=== PATIENT | female | born 1990 | race Caucasian/White ===

== ENCOUNTER 2019-09-14 11:01 | Emergency (ER) | payer OTHER, SELFPAY ==
[2019-09-14 11:15] VITALS: BP 116/83; PULSE 62; RESP 16; TEMP 36.6; O2SAT 100
--- NOTE | 2019-09-14 11:54 | ED.FEMALEGU ---
HPI - Female Genitourinary General Chief complaint: Urogenital-Female Stated complaint: Swollen vagina Time Seen by Provider: 09/14/19 11:54 Source: patient and RN notes reviewed Mode of arrival: ambulatory Limitations: no limitations History of Present Illness HPI Narrative: This is a 29 years old female presented office for evaluation of painful lesion in her vagina. She noticed it this morning. Denies injury or trauma. Denies urinary symptoms or discharge. She is sexually active with one partner only. She googled her symptoms which brought her to come here for second opinion. Denies concern for STI. Related Data Allergies Allergy/AdvReac Type Severity Reaction Status Date / Time adhesive tape Allergy Unknown Redness of Verified 09/14/19 11:33 Skin Review of Systems Review of Systems: Narrative: CONSTITUTIONAL: Denies fever or feeling ill ENT: Denies congestion CARDIOVASCULAR: Denies chest pain RESPIRATORY: Denies dyspnea GASTROINTESTINAL: Denies abdominal pain, nausea, vomiting, diarrhea. GENITOURINARY: Denies urinary symptoms or vaginal discharge SKIN: Denies rash MUSCULOSKELETAL: Denies acute back pain NEUROLOGIC: Denies lightheaded All other systems reviewed are negative, except as documented in HPI. PMFSH Surgical History Surgical History Hx of cholecystectomy Social History Social History Smoking status: Never smoker Second hand tobacco smoke exposure: No Alcohol intake: current Comments At time of signature, I agree with nursing past medical, surgical, social and family history. There is no relevant family history pertinent to the presenting complaint. Exam Narrative: Exam Narrative: GENERAL: This is a well-nourished, well-developed patient, in no apparent distress. CARDIOVASCULAR: Regular rate and rhythm without murmurs, gallops, or rubs. RESPIRATORY: Clear to auscultation. Breath sounds equal bilaterally. No wheezes, rales, or rhonchi. GASTROINTESTINAL: Abdomen soft, non-tender, nondistended. Bowel sounds are active. No hepato-splenomegaly, or palpable masses. No guarding. : exam sample clerk by warren Tyler labia appears normal without obvious lesions/rash; right fold between major and minor labia noted three erythethematous nodules with tendenerness to palpation. No vaginal discharge noted. No cyst noted NEURO: awake, alert, and oriented to person, place and time. There were no obvious focal neurologic abnormalities. Steady gait Bartlett Coma Scale Eye Opening: Spontaneous 4 Jarvis Coma Scale Motor: Obeys Commands 6 Bartlett Coma Scale Verbal: Oriented 5 Course Vital Signs Vital signs: Vital Signs Temperature 98 F 09/14/19 11:15 Pulse Rate 62 09/14/19 11:15 Respiratory Rate 16 09/14/19 11:15 Blood Pressure 116/83 09/14/19 11:15 Pulse Oximetry 100 09/14/19 11:15 Temperature 98 F 09/14/19 11:15 Pulse Rate 62 09/14/19 11:15 Respiratory Rate 16 09/14/19 11:15 Blood Pressure 116/83 09/14/19 11:15 Pulse Oximetry 100 09/14/19 11:15 MDM - Female Genitourinary MDM Narrative Medical decision making narrative: Lesions could be genital herpes or syphilis discussed with patient however it is unlikely since patient did not have history or concern for STD. Lesions likely due to some kind of an irritation that cause by soap, douche or underwear or foliculitis from shaving discussed with patient. Discharge instructions reviewed with patient, as well as provided in writing per nursing staff. The instructions also include specific and strict return/GO TO THE ER as well as f/u information. All questions have been answered, and the patient deny any further questions with discharge and discharge plan. Differential Diagnosis Differential diagnosis: Likely ovarian cyst, vaginitis and cyst of Bartholin's gland Critical Care Time Critical Care Denilson
== END 2019-09-14 12:17 | disposition home or self-care (01) ==
PROVIDERS: Emergency Provider Nurse Practitioner; PCP Nurse Practitioner Family
DX: L25.9 Unspecified contact dermatitis, unspecified cause (principal)
CPT/HCPCS: 99211; G0463

== ENCOUNTER 2024-12-14 10:42 | Emergency (ER) | payer BC, SELFPAY ==
--- OUTSIDE RECORDS SUMMARY | 2013-01-09 12:35 | XMS_ITS | Continuity of Care Document ---
Author Organization [facility] Address [address] [place] [address] Phone Care Team Providers Care Registered Dietitian Name Role Phone Unavailable Unavailable Unavailable Allergies, Adverse Reactions, Alerts Substance Reaction Status Criticality No Known allergies Medications Medication Instructions Dosage Effective Dates (start - stop) Status Comments Keflex 250 mg capsule take 1 capsule by oral route every 8 hours 250 MG - Active Ortho Tri-Cyclen Lo (28) 0.18 mg/0.215 mg/0.25 mg-25 mcg tablet take 1 tablet by oral route every day - Active Procedures Procedure Date Office/outpatient visit,[facility] 2012 Office/outpatient visit,[facility] 2011 Removal of single nail plate Advance Directives Directive Yes / No Effective Date File Name No Information Encounters Encounter Description Practice Location Reason(s) For Visit Diagnoses Date Provider Providers Copied on Encounter Office/outpat ient visit,[facility], [address] [place] [address], [id number], tel:[phone] [facility] Urgent Care leg injury (chief complaint)U rinary problems (chief complaint)H eadache (chief complaint) Contusion No Information Office/outpat ient visit,[facility], [address] [place] [address], [id number], tel:[phone] [facility] Urgent Care injury, finger (chief complaint) Nail avulsion, finger Stephon Lance. [address] [place], [address], . tel:[phone] Family History Family Member Type Diagnosis Age At Onset No Information Payers Payer name Insurance type Covered libertarian ID Radha cardoza(s) [facility] [id number] Social History Type Description Quantity Date Captured Comments Alcohol Use Details Unknown Caffeine Use Details Unknown Tobacco Use Status No Information Smoking Status Never smoker Non-Smoking Tobacco Use Details : No Details Available : No Details Available Sex Female Vital Signs Date / Time: Height Weight BMI Pulse Rate Blood Pressure Temperature Respiratory Rate Body Surface Area Head Circumference Head Circ. Percentile Wt./Minh. Percentile BMI percentile Pulse Ox Inhaled Ox 6:03 PM 59.00 in 73.028 kg (161.00 lbs) 32.5 2 kg/m eter (2) 77 /min 121/82 mm[Hg] 97.90 F 20 /min 98 % 21 % Chief Complaint And Reason For Visit From encounter dated '01/09/2013 17:35'. leg injury (chief complaint). Description: The symptoms began 4 days ago. pt states 4 days ago at the gym injured L inner thigh now has redness swelling and possible puncture wound Urinary problems (chief complaint) Headache (chief complaint) Reason For Referral Reason For Referral No Information History Of Present Illness Encounter Date Complaint History Of Prese nt Illness leg injury The symptoms beg an 4 days ago. pt states 4 days ago at the gym injured L inner thigh now has redness swelling and possible puncture wound Urinary problems Headache Functional Status Date Functional Assessmen t No Information Instructions Date Instruction Additional Infor mation Seek followup care i f symptoms persist, worsen, or new symptoms developSeek followup care if symp Related to Contusion Arrange earlier foll owup visit if symptoms worsen, new symptoms develop, or return to Urgent Care Related to Contusion Take medications as directed Rel ated to Contusion Assessments Type Assessment Date No Information Patient Care Teams Name Effective Dates (start - stop) Status Members No Information
[2024-12-14 10:51] VITALS: BP 119/89; PULSE 80; RESP 16; TEMP 36.4; O2SAT 99
--- NOTE | 2024-12-14 10:54 | ED_ITS ---
HPI - Extremity Injury (Lower) General Chief Complaint: Extremity Problem,Nontraumatic Stated Complaint: Lt Leg Pain Time Seen by Provider: 12/14/24 10:54 Source: patient Mode of arrival: ambulatory Limitations: no limitations History of Present Illness HPI Narrative: 34 yo F presents with pain to L groin radiating down L leg. painful when sitting, worse with movement and standing. Could not get comfortable in bed last night due to pain. Denies injury. Went to 6 hockey games this weekend. In and out of car, sitting on bleachers. did a lot of walking and standing. Took ibuprofen with little relief of pain. All systems reviewed and negative except as noted above. Related Data Home Medications ?Medication ?Instructions ?Recorded ?Confirmed ?Last Taken ?Type levonorgestrel (Mirena) 1 device intrauterine ONCE 0 07/13/21 12/14/24 Unknown History Allergies Allergy/AdvReac Type Severity Reaction Status Date / Time adhesive tape AdvReac Mild Redness of Verified 12/14/24 10:45 Skin PMFSH Past Medical History Medical History Remove/insert IUD Encounter for screening examination for sexually transmitted disease Irregular periods Anxiety Abnormal Pap smear of cervix 04/24/2019 Ascus +Hpv Encounter for IUD insertion 03/01/17 Mirena insertion Miscarriage 2010 suction d&c Surgical History Surgical History History of gynecological procedure (10/01/23) mirena iud removal and insertion of new device History of colposcopy with cervical biopsy 05/13/19 benign History of right knee surgery 2014 repair of meniscus [place] teeth extracted 2006 Hx of cholecystectomy 12/26/2016 Family History Family History Other Heart disease maternal aunt--congenital defect, 3 holes in heart Grandparent Acute myocardial infarction maternal grandmother Malignant neoplasm of prostate maternal grandfather Brain malignant neoplasm paternal grandfather Father Acute myocardial infarction Hypertension Social History Social History Smoking status: Never smoker Second hand tobacco smoke exposure: No Alcohol intake: current Drinks per week: 4 Substance use: never Substance use type: does not use Do You Feel Safe in your Home?: Yes Lack of Transportation: No Lack of Food: Never True Current Housing: I Have Housing Concerned About Future Housing: No Difficulty Paying Gas/Electric Bills: No Difficulty Paying for Meds: No Currently Unemployed: No Education: High School Diploma/GED Difficulty w/ Childcare or Family Care: No Living arrangements: other Additional living arrangements comments: dating Occupation/Education: occupation Additional occupation/education comments: [employer] Gender identity (if verbalized by the patient): Female Sexual Orientation (if Verbalized by the Patient): Straight or Heterosexual Comments At time of signature, agree with nursing past medical, surgical, social and family history. There is no relevant family history pertinent to the presenting complaint. Exam Narrative: GENERAL: This is a well-nourished, well-developed patient, in no apparent distr ess. HEAD: normocephalic, atraumatic. EYES: PERRL. Sclera clear/white. Vision is grossly intact. EARS: External ears normal NOSE: External nose normal NECK: Neck supple, non-tender without lymphadenopathy, masses or thyromegaly. CARDIOVASCULAR: Regular rate and rhythm without murmurs, gallops, or rubs. RESPIRATORY: Clear to auscultation. Breath sounds equal bilaterally. No wheezes, rales, or rhonchi. SKIN: warm, Dry, intact with no suspicious lesions or rash, good texture and turgor. NEURO: awake, alert, and oriented to person, place and time. There were no obvious focal neurologic abnormalities. EXTREMITIES: tenderness to left groin on palpation. Pain with passive range of motion Of left hip. No swelling to lower extremities. Distal neurovascularly intact. Course Course Level of Care: Express Care Visit Vital Signs Vital signs: Vital Signs Temperature 36.4 C 12/14/24 10:51 Pulse Rate 80 12/14/24 10:51 Respiratory Rate 16 12/14/24 10:51 Blood Pressure 119/89 12/14/24 10:51 Pulse Oximetry 99 12/14/24 10:51 Temperature 36.4 C 12/14/24 10:51 Pulse Rate 80 12/14/24 10:51 Respiratory Rate 16 12/14/24 10:51 Blood Pressure 119/89 12/14/24 10:51 Pulse Oximetry 99 12/14/24 10:51 Reviewed MDM - Extremity Injury (Lower) MDM Narrative Medical decision making narrative: tenderness to left groin, increase in pain with range of motion left hip concerning for cord strain. No neuro deficits. Recommend follow-up with primary care physician if not improved. Discharge Plan Discharge Clinical Impression: Strain of left groin Patient Disposition: Home Condition: Stable Instructions: Groin Strain (ED) Additional Instructions: take medication as prescribed. Methocarbamol as a muscle relaxant may cause drowsiness. Do not drive while taking it. Take ibuprofen every 6-8 hours as needed for pain. Apply ice as needed for pain. Do light stretching exercises as tolerated. Follow-up with your primary care physician if symptoms are not improving. Patient Language: Armenian Prescriptions: New methocarbamol 500 mg tablet 500 mg PO Q6H PRN (Reason: muscle pain/spasm) Qty: 30 0RF No Action Mirena 20 mcg/24 hours (7 yrs) 52 mg intrauterine device 1 device intrauterine ONCE Rx Instructions: as a single dose Follow-up/Referrals: Philip Chiu MD [Physician, Family Practice] Referral Note: Establish care with a primary care physician Stand Alone Forms: Work/School Release IP Time of Disposition: 11:01
--- OUTSIDE RECORDS SUMMARY | 2024-12-14 11:19 | XMS_ITS | Clinical Summary ---
Author Organization [facility] Address [facility] [place] [address] Care Team Providers Care Product Info Specialist Name Role Phone Marie Bronson MD Primary Care Provider + Allergies Active Allergy Reactions Criticality Noted Date Comments Tape Rash Low 05/08/2024 Medications Levonorgestrel (MIRENA, 52 MG, IU) Active tirzepatide (ZEPBOUND) 2.5 MG/0.5ML injectionIndica tions:Weight Loss Inject 2.5 mg into the skin once a week. Indications: Weight Loss Provide vials. [facility]. 6 mL 05/08/2024 Active tirzepatide (ZEPBOUND) 2.5 MG/0.5ML injectionIndica tions:Weight Loss Inject 2.5 mg into the skin once a week. Indications: Weight Loss 6 mL 05/08/2024 Active Active Problems Problem Noted Date Diagnosed Date Class 1 obesity due to exces s calories without serious comorbidity with body mass index (BMI) of 30.0 to 30.9 in adult 05/08/2024 Overview (05/08/2024): Previously did phentermine which caused too much jitteriness. She is interested in a medication to help her with weight loss Assessment & Plan (05/08/2024 10:00 AM GAS ROLLER OPERATOR): Discussed preference to manage with diet changes. She would like to use medication to help drop weight further. We discussed Zepbound in the vial program they offer. She would like to pursue this. We discussed the risks and side effects of the medication. Immunizations Immunization Administration Dates Next Due Tdap (Generic) 06/23/2015 Family History Medical History Relation Comments No Known Problems Brother 1 No Known Problems Brother 2 No Known Problems Brother 3 Hypertension Father Cancer Maternal Grandfather Kindey that turned into lung Cancer Maternal Uncle Prostate No Known Problems Mother Cancer Paternal Grandfather Brain tumor No Known Problems Son 1 No Known Problems Son 2 Relation Status Comments Brother 1 Alive Brother 2 Alive Brother 3 Alive Father Alive Maternal Grandfather Maternal Uncle Mother Alive Paternal Grandfather Son 1 Alive Son 2 Alive Social History Tobacco Use Types Packs/Day Years Used Date Smoking Tobacco: Never Passive Smoke Exposure: Past Smokeless Tobacco: Never Tobacco Cessation:Counseling Given: No Alcohol Use Standard Drinks/Week Comments Yes 6.7 (1 standard drink = 0.6 oz p ure alcohol) social PHQ-2 Answer Date Recorded Patient Health Questionnaire-2 Score 0 05/08/2024 Comments Unknown Sex and Gender Information Value Date Recorded Sex Assigned at Not on file Legal Sex Female 3:50 PM GAS ROLLER OPERATOR Gender Identity Not on file Sexual Orientation Not on file Last Filed Vital Signs Vital Sign Reading Time Taken Comments Blood Pressure 118/80 05/08/2024 9:11 AM GAS ROLLER OPERATOR Pulse 77 05/08/2024 9:11 AM GAS ROLLER OPERATOR Temperature 36.9 C (98.4 F) 05/08/2024 9:11 AM GAS ROLLER OPERATOR Respiratory Rate - - Oxygen Saturation 100% 05/08/2024 9:11 AM GAS ROLLER OPERATOR Inhaled Oxygen Concentration - - Weight 68.7 kg (151 lb 6.4 oz) 05/08/2024 9:11 A M GAS ROLLER OPERATOR Height 149.9 cm (4' 11) 05/08/2024 9:11 AM GAS ROLLER OPERATOR Body Mass Index 30.58 05/08/2024 9:11 AM GAS ROLLER OPERATOR Plan of Treatment Upcoming Encounters Date Type Department Care Team (Late st Contact Info) Description 05/14/2025 9:10 AM GAS ROLLER OPERATOR Office Visit [facility] - [place] [address] [place] [phone] Marie Bronson MD [address] [place], [place] [id number] Health Maintenance Due Date Last Done Comments Cervical Cancer Screening Pa p Smear (Age 30 to 64) Every 3 Years 1989 Hepatitis C 2007 Hepatitis B Vaccines (1 of 3 - 19+ 3-dose series) 02/01/2008 HPV Vaccines (1 - 3-dose SCD M series) 02/01/2016 Cervical Cancer Screening Pa p with HPV Testing (Age 30 to 64) Every 5 Years 2019 07/28/2013 Cervical Cancer Screening wi th HPV 2019 COVID-19 Vaccine (3 - 2024-2 6 season) 2024 07/01/2020, 06/02/2020 Annual Physical 05/08/2025 05/08/2024 DTaP, Tdap and Td Vaccines ( 2 - Td or Tdap) 06/22/2025 06/23/2015 PHQ-2 (Physician [place]) Completed 05/08/2024 Meningococcal B Vaccine Aged Out No l onger eligible based on patient's age to complete this topic Meningococcal Vaccine Aged Out No bobby merary eligible based on patient's age to complete this topic Pneumococcal Vaccine: Pediatrics (0 to 5 Years) and At-Risk Patients (6 to 49 Years) Aged Out No longer eligible b ased on patient's age to complete this topic RSV Immunizations Under 20 Months Aged Out No longer eligible b ased on patient's age to complete this topic Insurance [facility] Care Teams Product Info Specialist Relationship Specialty Start Date End Date Marie Bronson MD [address] [facility] [place] [id number] PCP - General FAMILY PRACTICE 05/08/24
--- OUTSIDE RECORDS SUMMARY | 2024-12-14 11:20 | XMS_ITS | Clinical Summary ---
Author Organization [facility] Address [address] [place] [address] Care Team Providers Care Machine Group Leader Name Role Phone Elizabeth Garcia Frankie FONTENOT-CHEMICAL MIXER Primary Care Provider Source Comments [facility],non-owned Affiliates and Associated Physician Practices is amultiple site organization consisting of ambulatory clinics and hospital sitesin [place], [place], [place] and [place]. This disclosure is being madepursuant to the Care Everywhere program and may not contain all information available regarding this patient. Last updated 17.[facility] Allergies No known active allergies Medications * Be aware that medications may not be up to date on this document. Alwaysverify current medications with the patient. azithromycin (Zithromax) 250 MG tablet Take 2 tablets on day 1, then take 1 tablet daily for 4 days 6 tablet 05/02/2022 Active Active Problems Problem Noted Date Diagnosed Date Bacterial vaginosis 07/14/2014 Contraception management 07/14/2014 Family History Medical History Relation Name Comments Hypertension Father Cancer - Other Maternal Grandfather lung [facility] Maternal Grandmother Cancer - Other Paternal Grandfather brain Relation Name Status Comments Father Maternal Grandfather Maternal Grandmother Paternal Grandfather Social History Tobacco Use Types Packs/Day Years Used Date Smoking Tobacco: Never Smokeless Tobacco: Never Alcohol Use Standard Drinks/Week Comments Yes 0 (1 standard drink = 0.6 oz pur e alcohol) beer on occ Comments No Sex and Gender Information Value Date Recorded Sex Assigned at Not on file Legal Sex Female 6:47 PM CHARGE AIDE Gender Identity Not on file Sexual Orientation Not on file 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 Not on file No t on file Last Filed Vital Signs Vital Sign Reading Time Taken Comments Blood Pressure 145/91 05/02/2022 7:30 PM CHARGE AIDE Pulse 80 05/02/2022 6:00 PM CHARGE AIDE Temperature 36.7 C (98.1 F) 05/02/2022 12:55 PM CHARGE AIDE Respiratory Rate 16 05/02/2022 6:00 PM CHARGE AIDE Oxygen Saturation 100% 05/02/2022 7:30 PM CHARGE AIDE Inhaled Oxygen Concentration - - Weight 55.8 kg (123 lb) 05/02/2022 12:55 PM CHARGE AIDE Height 149.9 cm (4' 11) 05/02/2022 12:55 PM CHARGE AIDE Body Mass Index 24.84 05/02/2022 12:55 PM CHARGE AIDE Plan of Treatment Health Maintenance Due Date Last Done Comments HIV SCREENING 02/01/2004 HEPATITIS C SCREENING 01/27/2007 DTAP/TDAP/TD VACCINES (1 - Tdap) 02/01/2008 HEPATITIS B VACCINE (1 of 3 - 19+ 3-dose series) 02/01/2008 HPV VACCINE (2 - 3-dose series) 05/10/2014 04/12/2014 (Declined) PAP SMEAR 07/28/2016 07/28/2013, 0603/2012 (Previously completed) DEPRESSION SCREENING 03/18/2024 COVID-19 VACCINE (3 - 2024- season) 2024 07/01/2020, 06/02/2020 INFLUENZA VACCINE (#1) 2024 3, 12/27/2020, 12/23/2020, Additional history exists ZOSTER VACCINE (1 of 2) 2039 HIB VACCINE Aged Out No longer eligi ble based on patient's age to complete this topic MENINGOCOCCAL (Group B) VACCINE SHARED DECISION-MAKING Aged Out No longer eligible based on patient's age to complete this topic MENINGOCOCCAL GROUPS A/C/Y/W VACCINE Aged Out No longer eligible based on patient's age to complete this topic PNEUMOCOCCAL VACCINE Aged Out No long er eligible based on patient's age to complete this topic Procedures Procedure Name Priority Date/Time Associated Diagnosis Comments PAP SMEAR IG HPV HR Routine 07/28/2013 5:59 PM CDT Well woman exam with routine gynecological exam from Last 3 Months or Most Recently Relevant to Health Maintenance Results * PAP SMEAR IG HPV HR (PO REF LAB) (07/28/2013 5:59 PM CDT) Diagnosis [facility] ACCOUNT BILL Comment: NEGATIVE FOR INTRAEPITHELIAL LESION AND MALIGNANCY. PREDOMINANCE OF COCCOBACILLI CONSISTENT WITH SHIFT IN VAGINAL LARISA IS PRESENT. CELLULAR CHANGES ASSOCIATED WITH INFLAMMATION ARE PRESENT. Specimen Adequacy [facility] ACCOUNT BILL Comment: Satisfactory for evaluation. Endocervical and/or squamous metaplastic cells (endocervical component) are present. Clinician Provided ICD9 [facility] ACCOUNT BILL Comment:V72.31 ; Routine director retirement ecological examination Performed by [facility] ACCOUNT BILL Comment:Sai Garza, Cytotec hnologist (ASCP) Comment . [facility] ACCOUNT BILL Note [facility] ACCOUNT BILL Comment: The Pap smear is a screening test designed to aid in the detection of premalignant and malignant conditions of the uterine cervix. It is not a diagnostic procedure and should not be used as the sole means of detecting cervical cancer. Both false-positive and false-negative reports do occur. . IGLBP CPT Code Automation [facility] ACCOUNT BILL Comment: This liquid based ThinPrep(R) pap test was screened with the use of an image guided system. Human papillomavirus High Risk Negative Negative [facility] ACCOUNT BILL Comment: This high-risk HPV test detects thirteen high-risk types (16/18/31/33/35/39/45/51/52/56/58/59/68) without differentiation. . MICROSCOPIC CYTOLOGIC EXAMINATION OF SMEAR OF SPECIMEN FROM FEMALE GENITAL TRACT PREPARED USING PAPANICOLAOU TECHNIQUE / Unknown 07/28/2013 5:59 PM CDT 07/30/2013 4:54 AM CDT Narrative [facility] ACCOUNT BILL - 07/31/2013 8:10 PM CDT Source.............Endocervical LMP / Prev Treat...ZHZ=[id number];None Other..............Oral Contraceptives No. of containers..01 CYTYC Thin Prep Vial Resulting Agency Comment [facility] [address] [place] [id number] us Salina Abdi MD LAB - PATHOLOGY/CYTOLOGY ORDER OMA Final Result [facility] ACCOUNT BILL [address] [place] [address] from Last 3 Months or Most Recently Relevant to Health Maintenance Insurance [employer] [facility] Care Teams Machine Group Leader Relationship Specialty Start Date End Date Elizabeth Garcia, INSPECTOR OF WEIGHTS AND MEASURES-CHEMICAL MIXER [address] [place] [address] PCP - General Nurse Practitioner Family 05/02/22
--- OUTSIDE RECORDS SUMMARY | 2024-12-14 11:20 | XMS_ITS ---
09/06/19 24 09/06/2023 CBC/C OMPLE TE BLD COUNT W/DIF F platelets 296 x10'3 /uL 150-40 0 Not Available [facility] (Lab) [address] [place], [address], 09/06/2023 13:27:53 09/06/19 24 09/06/2023 CBC/C OMPLE TE BLD COUNT W/DIF F mean platelet volume 10.2 fL 9.0-12 .4 Not Available [facility] (Lab) [address] [place], [address], 09/06/2023 13:27:53 09/06/19 24 09/06/2023 CBC/C OMPLE TE BLD COUNT W/DIF F neutrophils 55.6 % 39.0-7 2.0 Not Available [facility] (Lab) [address] [place], [address], 09/06/2023 13:27:53 09/06/19 24 09/06/2023 CBC/C OMPLE TE BLD COUNT W/DIF F lymphocytes 36.1 % 16.0-4 7.0 Not Available [facility] (Lab) [address] [place], [address], 09/06/2023 13:27:53 09/06/19 24 09/06/2023 CBC/C OMPLE TE BLD COUNT W/DIF F monocytes 5.8 % 5.0-12 .0 Not Available [facility] (Lab) [address] [place], [address], 09/06/2023 13:27:53 09/06/19 24 09/06/2023 CBC/C OMPLE TE BLD COUNT W/DIF F eosinophils 1.5 % 1.0-7. 0 Not Available [facility] (Lab) [address] [place], [address], 09/06/2023 13:27:53 09/06/19 24 09/06/2023 CBC/C OMPLE TE BLD COUNT W/DIF F basophils 0.7 % 0.0-2. 0 Not Available [facility] (Lab) [address] [place], [address], 09/06/2023 13:27:53 09/06/19 24 09/06/2023 CBC/C OMPLE TE BLD COUNT W/DIF F immature granulocytes 0.3 % 0.00-0 .50 Not Available [facility] (Lab) [address] [place], [address], 09/06/2023 13:27:53 09/06/19 24 09/06/2023 CBC/C OMPLE TE BLD COUNT W/DIF F neutrophils, absolute count 4.16 x10'3 /uL 1.5-8. 0 Not Available [facility] (Lab) [address] [place], [address], 09/06/2023 13:27:53 09/06/19 24 09/06/2023 CBC/C OMPLE TE BLD COUNT W/DIF F lymphocytes, absolute count 2.70 x10'3 /uL 1.07-3 .43 Not Available [facility] (Lab) [address] [place], [address], 09/06/2023 13:27:53 09/06/19 24 09/06/2023 CBC/C OMPLE TE BLD COUNT W/DIF F monocytes, absolute count 0.43 x10'3 /uL 0.29-0 .99 Not Available [facility] (Lab) [address] [place], [address], 09/06/2023 13:27:53 09/06/19 24 09/06/2023 CBC/C OMPLE TE BLD COUNT W/DIF F eosinophils, absolute count 0.11 x10'3 /uL 0.02-0 .53 Not Available [facility] (Lab) [address] [place], [address], 09/06/2023 13:27:53 09/06/19 24 09/06/2023 CBC/C OMPLE TE BLD COUNT W/DIF F basophils, absolute count 0.05 x10'3 /uL 0.01-0 .08 Not Available [facility] (Lab) [address] [place], [address], 09/06/2023 13:27:53 09/06/19 24 09/06/2023 CBC/C OMPLE TE BLD COUNT W/DIF F immature granulocytes ,absolute 0.02 x10'3 /uL 0.00-0 .05 Not Available [facility] (Lab) [address] [place], [address], 09/06/2023 13:27:53 09/06/19 24 09/06/2023 CBC/C OMPLE TE BLD COUNT W/DIF F nucleated red blood cells 0.0 % -0 Not Available [facility] (Lab) [address] [place], [address], 09/06/2023 13:27:53 09/06/19 24 09/06/2023 CBC/C OMPLE TE BLD COUNT W/DIF F NRBC# 0.00 x10'3 /uL Not Available [facility] (Lab) [address] [place], [address], 09/06/2023 13:27:53 09/06/19 24 09/06/2023 URINA LYSIS COMPL ETE/I RIS W/RFX color YELLOW Not Available [facility] (Lab) [address] [place], [address], 09/06/2023 13:29:20 09/06/19 24 09/06/2023 URINA LYSIS COMPL ETE/I RIS W/RFX appear CLEAR Not Available [facility] (Lab) [address] [place], [address], 09/06/2023 13:29:20 09/06/19 24 09/06/2023 URINA LYSIS COMPL ETE/I RIS W/RFX specific gravity 1.016 1.001- 1.030 Not Available [facility] (Lab) [address] [place], [address], 09/06/2023 13:29:20 09/06/19 24 09/06/2023 URINA LYSIS COMPL ETE/I RIS W/RFX pH 7.0 pH_un its 5.0-9. 0 Not Available [facility] (Lab) [address] [place], [address], 09/06/2023 13:29:20 09/06/19 24 09/06/2023 URINA LYSIS COMPL ETE/I RIS W/RFX leukocytes NEGATI VE nneka/u L negati ve- Not Available [facility] (Lab) [address] [place], [address], 09/06/2023 13:29:20 09/06/19 24 09/06/2023 URINA LYSIS COMPL ETE/I RIS W/RFX nitrite NEGATI VE negati ve- Not Available [facility] (Lab) [address] [place], [address], 09/06/2023 13:29:20 09/06/19 24 09/06/2023 URINA LYSIS COMPL ETE/I RIS W/RFX protein 10 mg/dL negati ve- abnormal Not Available [facility] (Lab) [address] [place], [address], 09/06/2023 13:29:20 09/06/19 24 09/06/2023 URINA LYSIS COMPL ETE/I RIS W/RFX glucose NORMAL mg/dL normal - Not Available [facility] (Lab) [address] [place], [address], 09/06/2023 13:29:20 09/06/19 24 09/06/2023 URINA LYSIS COMPL ETE/I RIS W/RFX ketones NEGATI VE mg/dL negati ve- Not Available [facility] (Lab) [address] [place], [address], 09/06/2023 13:29:20 09/06/19 24 09/06/2023 URINA LYSIS COMPL ETE/I RIS W/RFX urobilinogen NORMAL mg/dL normal - Not Available [facility] (Lab) [address] [place], [address], 09/06/2023 13:29:20 09/06/19 24 09/06/2023 URINA LYSIS COMPL ETE/I RIS W/RFX bilirubin NEGATI VE mg/dL negati ve- Not Available [facility] (Lab) [address] [place], [address], 09/06/2023 13:29:20 09/06/19 24 09/06/2023 URINA LYSIS COMPL ETE/I RIS W/RFX blood NEGATI VE mg/dL negati ve- Not Available [facility] (Lab) [address] [place], [address], 09/06/2023 13:29:20 09/06/19 24 09/06/2023 URINA LYSIS COMPL ETE/I RIS W/RFX white blood cells 0-8 /i??h pfi?? 0-8 Not Available [facility] (Lab) [address] [place], [address], 09/06/2023 13:29:20 09/06/19 24 09/06/2023 URINA LYSIS COMPL ETE/I RIS W/RFX red blood cells 0-4 /i??h pfi?? 0-4 Not Available [facility] (Lab) [address] [place], [address], 09/06/2023 13:29:20 09/06/19 24 09/06/2023 URINA LYSIS COMPL ETE/I RIS W/RFX bacteria NONE Not Available [facility] (Lab) [address] [place], [address], 09/06/2023 13:29:20 09/06/19 24 09/06/2023 URINA LYSIS COMPL ETE/I RIS W/RFX mucous OCCASI ONAL /i??l pfi?? abnormal Not Available [facility] (Lab) [address] [place], [address], 09/06/2023 13:29:20 09/06/19 24 09/06/2023 URINA LYSIS COMPL ETE/I RIS W/RFX squamous epithelial FEW /i??l pfi?? abnormal Not Available [facility] (Lab) [address] [place], [address], 09/06/2023 13:29:20 09/06/19 24 09/06/2023 COMPR EHENS SHANNAN METAB OLIC PANEL sodium 137 mmol/ L 137-14 5 Not Available [facility] (Lab) [address] [place], [address], 09/06/2023 14:01:40 09/06/19 24 09/06/2023 COMPR EHENS SHANNAN METAB OLIC PANEL potassium 4.4 mmol/ L 3.5-5. 1 Not Available [facility] (Lab) [address] [place], [address], 09/06/2023 14:01:40 09/06/19 24 09/06/2023 COMPR EHENS SHANNAN METAB OLIC PANEL chloride 109 mmol/ L 98-107 high Not Available [facility] (Lab) [address] [place], [address], 09/06/2023 14:01:40 09/06/19 24 09/06/2023 COMPR EHENS SHANNAN METAB OLIC PANEL carbon dioxide 26 mmol/ L 22-30 Not Available [facility] (Lab) [address] [place], [address], 09/06/2023 14:01:40 09/06/19 24 09/06/2023 COMPR EHENS SHANNAN METAB OLIC PANEL anion gap 6.4 mmol/ L 14-22 low Not Available [facility] (Lab) [address] [place], [address], 09/06/2023 14:01:40 09/06/19 24 09/06/2023 COMPR EHENS SHANNAN METAB OLIC PANEL glucose 97 mg/dL 70-99 Not Available [facility] (Lab) [address] [place], [address], 09/06/2023 14:01:40 09/06/19 24 09/06/2023 COMPR EHENS SHANNAN METAB OLIC PANEL BUN 5 mg/dL 8-19 low Not Available [facility] (Lab) [address] [place], [address], 09/06/2023 14:01:40 09/06/19 24 09/06/2023 COMPR EHENS SHANNAN METAB OLIC PANEL creatinine 0.84 mg/dL 0.66-1 .25 Not Available [facility] (Lab) [address] [place], [address], 09/06/2023 14:01:40 09/06/19 24 09/06/2023 COMPR EHENS SHANNAN METAB OLIC PANEL GFR >60 Refer ence Range : Arnold ge GFR Healt hy Adult : >60 mL/mi n/1.7 3 m2 Chron ic Kidne y Disea se: 15-60 mL/mi n/1.7 3 m2 Kidne y Failu re: <15/m L/min /1.73 m2 www.n iddk. nih.g ov The MDRD study equat ion has not been valid ated in child boris <18 years of age; pregn ant women ; the elder ly >85 years of age; or in some racia l or ethni c subgr oups, such as Hispa nics. Outsi de the valid ated lakeshia eters , estim ated GFR is less accur ate, requi ring clini louise judgm ent on a case- by-ca se basis . Clini louise inter preta tion for other races and ages must be made by the clini deanne. The MDRD study equat ion has not been valid ated for the evalu ation of serum creat inine relat ed to nutri rhea l statu s or medic ation usage . For perso ns <18 years of age, a pedia tric GFR calcu lator is avail able on the [facility] websi te: https ://ww w.kid yao.o rg/pr ofess ional s/kdo qi/gf r_cal culat or Not Available [facility] (Lab) [address] [place], [address], 09/06/2023 14:01:40 09/06/19 24 09/06/2023 COMPR EHENS SHANNAN METAB OLIC PANEL alkaline phosphatase 130 U/L 38-126 high Not Available [facility] (Lab) [address] [place], [address], 09/06/2023 14:01:40 09/06/19 24 09/06/2023 COMPR EHENS SHANNAN METAB OLIC PANEL alanine aminotransfe rase 96 U/L 0-35 high Not Available [facility] (Lab) [address] [place], [address], 09/06/2023 14:01:40 09/06/19 24 09/06/2023 COMPR EHENS SHANNAN METAB OLIC PANEL aspartate aminotransfe rase 59 U/L 15-37 high Not Available [facility] (Lab) [address] [place], [address], 09/06/2023 14:01:40 09/06/19 24 09/06/2023 COMPR EHENS SHANNAN METAB OLIC PANEL bilirubin, total 0.70 mg/dL 0.20-1 .30 Not Available [facility] (Lab) [address] [place], [address], 09/06/2023 14:01:40 09/06/19 24 09/06/2023 COMPR EHENS SHANNAN METAB OLIC PANEL calcium 9.4 mg/dL 8.4-10 .2 Not Available [facility] (Lab) [address] [place], [address], 09/06/2023 14:01:40 09/06/19 24 09/06/2023 COMPR EHENS SHANNAN METAB OLIC PANEL total protein 7.5 g/dL 6.3-8. 2 Not Available [facility] (Lab) [address] [facility] [place], [address], 09/06/2023 14:01:40 09/06/19 24 09/06/2023 COMPR EHENS SHANNAN METAB OLIC PANEL albumin 4.6 g/dL 3.4-5. 0 Not Available [facility] (Lab) [address] [facility] [place], [address], 09/06/2023 14:01:40 09/06/19 24 09/06/2023 COMPR EHENS SHANNAN METAB OLIC PANEL globulin 2.9 g/dL 2.6-4. 2 Not Available [facility] (Lab) [address] [place], [address], 09/06/2023 14:01:40 09/06/19 24 09/06/2023 COMPR EHENS SHANNAN METAB OLIC PANEL A/G ratio 1.6 ratio 1.0-2. 0 Not Available [facility] (Lab) [address] [place], [address], 09/06/2023 14:01:40 09/06/19 24 09/06/2023 LIPID PANEL cholesterol 152 mg/dL 140-19 9 NIH FREDDY NSUS RECOM MENDA TION FOR RENATA STERO L: ADULT CHILD LOW RISK: <200 <170 BORDE RLINE : <200- 239 ----- HIGH RISK: >240 >200 Not Available [facility] (Lab) [address] [place], [address], 09/06/2023 14:01:43 09/06/19 24 09/06/2023 LIPID PANEL triglyceride s 91 mg/dL 0-150 NIH FREDDY NSUS REPOR T RECOM MENDA TION FOR TRIGL YCERI NICK: ADULT CHILD LOW RISK: <150 ----- BODER LINE: 150-1 99 ----- HIGH RISK: >200 ----- Not Available [facility] (Lab) [address] [place], [address], 09/06/2023 14:01:43 09/06/19 24 09/06/2023 LIPID PANEL HDL cholesterol 63 mg/dL 40- Not Available [facility] (Lab) [address] [place], [address], 09/06/2023 14:01:43 09/06/19 24 09/06/2023 LIPID PANEL LDL cholesterol, calculated 71 mg/dL 0-130 NIH FREDDY NSUS REPOR T RECOM MENDA TIONS FOR LDL: ADULT CHILD LOW RISK <130 <110 (OPTI MAL LDL) <100 ----- MARGODE RLINE : 130-1 59 ----- HIGH RISK: >160 >130 A TRIGL YCERI DE RESUL T >400 INVAL IDATE S THE CALCU LATIO N FOR LDL FRACT IONAT ION - THE LDL RESUL T WILL NOT BE REPOR REINA. Not Available [facility] (Lab) [address] [place], [address], 09/06/2023 14:01:43 09/06/19 24 09/06/2023 TSH W/REF JESSE FT4 TSH with reflex free T4 1.200 uIU/m L 0.465- 4.680 Not Available [facility] (Lab) [address] [place], [address], 09/06/2023 14:28:46 09/06/19 24 09/06/2023 VITAM IN D 25-HY DROXY [id number] 39.0 NG/mL 30-100 Vitam in D Statu s: Defic ient: <20 ng/mL Insuf ficie nt: 20-29 ng/mL Suffi cient : 30-10 0 ng/mL Not Available [facility] (Lab) [address] [place], [address], 09/06/2023 15:27:29 09/06/19 24 09/06/2023 HEMOG LOBIN A1C HA1C 4.6 % 4.0-6. 0 Diabe grace Scree javad Crite terra: <5.7% Consi stent with absen ce of diabe grace 5.7-6 .4% Consi stent with incre ased risk for diabe grace (pred iabet es) >OR=6 .5% Consi stent with diabe grace REFER ENCE: Diabe grace Care 2016, 39(Causey ppl.1 ):s13 -s22 Not Available [facility] (Lab) [address] [place], [address], 09/06/2023 20:33:45 Result Notes None recorded. Problems Name Problem SNOMED Code Status Onset Date Resolution Date Notes Provider Name and Address Organization Details Recorded Time Suppressio n of menstruati on Completed Not Available [facility] 3 10:46:28 Uterine size for dates discrepanc y 515273807 Completed Not Available [facility] 3 10:46:29 Overweight 325989206 Active 2016 Not Available [facility] 3 12:57:15 Liver enzymes level above reference range 484794040 Active 2016 Not Available [facility] 3 12:57:15 Anxiety disorder 718069915 Active 2023 Mike Winn MD [address] [address], [place], [address] , [facility] [employer] [facility] 4 17:24:52 History of cholecyste ctomy 322928961 Active 2023 Mike Winn MD [address] [address], [place], [address] , [facility] [employer] [facility] 4 17:43:15 Problem Notes None recorded. Procedures Surgical History Date Name Laterality Status Provider Name and Address Organization Details Recorded Time 04/18/19 Date of Last Pap Smear completed Elizabeth Hummel RN [facility] [employer] [facility] 02/01/2023 10:33:56 cholecystectomy completed Not Available [facility] 05/16/2022 10:42:54 repair of meniscus completed Not Available [facility] 05/16/2022 10:42:54 Imaging Results None recorded. Procedure Notes None recorded. Medical Equipment None Reported. Allergies Allergen ID Allergen Name Allergen Category Reaction Reaction Severity Criticality Documentation Date Start Date Code Code System Note Provider Name and Address Organization Details Recorded Time 83348 adhesive tape environme nt,medica tion rash moderate Not available 05/16/2022 Not Available [facility] 3 10:52:19 19438 escitalop colby Not available confusion moderate Not available 05/22/2023 98247 8 RxNorm Mike Winn MD [address] [facility] [address], [place], [address], [facility] [employer] [facility] 4 17:30:16 Medications Name Sig Start Date Stop Date Status Note LastModified by Organization Details LastModified Time cyclobenzap rine 10 mg tablet TAKE 1 TABLET BY MOUTH THREE TIMES A DAY NEEDED active Not Available Not Available No t Available Mirena 21 mcg/24 hr (up to 8 years) 52 mg intrauterin e device Take by intrauter ine route. 2016 active Not Available Not Available Not Avai lable azithromyci n 250 mg tablet TAKE 2 TABLETS BY MOUTH TODAY, THEN TAKE 1 TABLET DAILY FOR 4 DAYS DIRECTED 07/03 completed Not Available Not Available Not Available fluconazole 150 mg tablet TAKE 1 TABLET BY MOUTH EVERY DAY FOR 1 DAY 02/01 completed Not Available Not Available Not Available benzonatate 200 mg capsule TAKE 1 CAPSULE BY MOUTH THREE TIMES A DAY NEEDED FOR 7 DAYS 07/03 completed Not Available Not Available Not Available hydrocodone 5 mg-acetamin ophen 325 mg tablet 03/01 completed Not Available Not Available Not Available metronidazo le 0.75 % (37.5 mg/5 gram) vaginal gel active Not Available Not Available Not Available phentermine 15 mg capsule TAKE 1 CAPSULE BY MOUTH EVERY DAY IN THE MORNING 09/02 completed Not Available Not Available Not Available phentermine 37.5 mg tablet TAKE 1 TABLET BY MOUTH EVERY DAY 05/18 completed Not Available Not Available Not Available sulfamethox azole 800 mg-trimetho prim 160 mg tablet 04/17 completed Not Available Not Available Not Available phentermine 30 mg capsule TAKE 1 CAPSULE BY MOUTH EVERY DAY IN THE MORNING active Not Available Not Available No t Available hydrocodone 7.5 mg-acetamin ophen 325 mg tablet active Not Available Not Available No t Available buspirone 7.5 mg tablet TAKE 1 TABLET BY MOUTH TWICE A DAY NEEDED active Not Available Not Available No t Available mupirocin 2 % topical ointment active Not Available Not Available Not Available methylpredn isolone 4 mg tablets in a dose pack TAKE 6 TABLETS ON DAY 1 DIRECTED ON PACKAGE AND DECREASE BY 1 TAB EACH DAY FOR A TOTAL OF 6 DAYS 07/03 completed Not Available Not Available Not Available medroxyprog esterone 150 mg/mL intramuscul ar suspension Inject 1 mL every 3 months by intramusc ular route. 12/21 completed Depo shot September 2016, due 01/04 17 Not Available Not Available Not Available Depo-[employer] a 150 mg/mL intramuscul ar syringe Inject 1 mL every 3 months by intramusc ular route. active Not Available Not Available No t Available Zovirax 5 % topical cream active Not Available Not Available Not Available escitalopra m 5 mg tablet TAKE 1 TABLET BY MOUTH EVERY DAY 05/21 completed Not Available Not Available Not Available nitrofurant oin monohydrate /macrocryst als 100 mg capsule Take 1 capsule every 12 hours by oral route for 7 days. 04/17 completed Not Available Not Available Not Available Plus (calcium carbonate) 27 mg iron-1 mg tablet active Not Available Not Available Not Available 19 (with docusate) 29 mg iron-1 mg-25 mg tablet Take 1 tablet by oral route. active Not Available Not Available No t Available Afluria Quad 4082-0554 (PF) 60 mcg (15 mcg x 4)/0.5 mL IM syringe ADM 0.5ML IM UTD 04/17 completed Not Available Not Available Not Available Flucelvax Quad (PF) 60 mcg (15 mcg x 4)/0.5 mL IM syringe ADM 0.5ML IM UTD 04/17 completed Not Available Not Available Not Available Vitals Date Recorded Heart rate Respiratory rate Systolic And Diastolic Provider Name and Address Organization Details Last Updated DateTime 05/22/2023 104 /min 22 /min 144/80 mm[Hg] Mike Winn MD [address] [facility] [address], [place], [address], [facility] [employer] 05/22/2023 17:29:09 Date Recorded Body height Body mass index (BMI) Body weight Body temperature Oxygen saturation Oxygen saturation in Arterial blood by Pulse oximetry Pain severity - 0-10 verbal numeric rating [Score] - Reported Provider Name and Address Organization Details Last Updated DateTime 4 149.86 cm 29 kg/m2 54086.1 6 g 98.8 [degF] 98 % 98 % 5 Elizabeth Hummel RN [facility] [employer] 4 17:17:21 Date Recorded Respiratory rate Provider Name a nv Address Organization Details Last Updated DateTime 07/04/2023 16 /min Charlee Mckenna [address] [address], [place], [address], [place] [employer] [facility] [employer] 07/04/2023 17:42:48 Date Recorded Body height Body mass index (BMI) Body weight Body temperature Heart rate Oxygen saturation Oxygen saturation in Arterial blood by Pulse oximetry Systolic And Diastolic Provider Name and Address Organization Details Last Updated DateTime 4 149.86 cm 29.9 kg/m2 56844.0 2 g 97.9 [degF] 88 /min 99 % 99 % 140/76 mm[Hg] Ned Vásquez [facility] [employer] 4 17:40:52 Date Recorded Body height Body mass index (BMI) Body weight Body temperature Heart rate Respiratory rate Oxygen saturation Oxygen saturation in Arterial blood by Pulse oximetry Systolic And Diastolic Provider Name and Address Organization Details Last Updated DateTime 4 149.86 cm 28.7 kg/m2 90856.4 7 g 97.8 [degF] 78 /min 16 /min 99 % 99 % 128/70 mm[Hg] Ned Vásquez [facility] [employer] [facility] 4 17:24:14 Date Recorded Body height Provider Name an d Address Organization Details Last Updated DateTime 09/06/2023 149.86 cm Elizabeth Hummel RN [facility] [employer] [facility] 09/06/2023 09:24:08 Date Recorded Body height Body mass index (BMI) Body weight Body temperature Heart rate Respiratory rate Oxygen saturation Oxygen saturation in Arterial blood by Pulse oximetry Systolic And Diastolic Provider Name and Address Organization Details Last Updated DateTime 4 149.86 cm 27.9 kg/m2 06509.7 5 g 97.6 [degF] 74 /min 16 /min 99 % 99 % 124/70 mm[Hg] Ned Vásquez [facility] [employer] [facility] 4 16:28:01 Social History Question Answer Notes LastModified by Organizat ion Details LastModified Time Tobacco Smoking Status Never Smoker Not Available [facility] 05/16/2022 10:41:42 Do You Have An Advance Directive? No Information n ot available 02/01/2023 Is Blood Transfusion Acceptable In An Emergency? Yes Information not available 02/01/2023 What Is Your Level Of Caffeine Consumption? Moderate [id number] Information not available 05/16/2022 What Is Your Code Status? Full Code Information not available 02/01/2023 In The 14 Days Before Symptom Onset, Have You Had Close Contact With A Laboratory-confirm ed COVID-19 While That Case Was Ill? No [id number] Information not available 05/16/2022 In The 14 Days Before Symptom Onset, Have You Had Close Contact With A Person Who Is Under Investigation For COVID-19 While That Person Was Ill? No [id number] Information not available 05/16/2022 What Type Of Diet Are You Following? REGULAR [id number] Information not available 05/16/2022 Have There Been Any Changes To Your Family Or Social Situation? No [id number] Information not available 05/16/2022 What Is The Fluoride Status Of Your Home? Fluoridated [id number] Information not available 05/16/2022 Where Do You Live? Apartment [id number] Information not available 05/16/2022 How Many Children Do You Have? 1 Information not available 02/01/2023 Do You Have Any Pets? No [id number] Information not available 05/16/2022 What Is Your Relationship Status? [id number] Information not available 05/16/2022 Do You Have Smoke And Carbon Monoxide Detectors In Your Home? Yes [id number] Information not available 05/16/2022 Are You Passively Exposed To Smoke? No [id number] Information not available 05/16/2022 Are There Any Smokers In Your House? No [id number] Information not available 05/16/2022 Do You Participate In Social Media? Yes [id number] Information not available 05/16/2022 Have You Recently Traveled Abroad? No [id number] Information not available 05/16/2022 Are You Currently In School? No [id number] Information not available 05/16/2022 Sex: Female Functional Status Question Answer Note LastModified by [employer] Details LastModified Time Do you use any illicit or recreational drugs? No [id number] Information not available 05/16/2022 What is your level of alcohol consumption? Occasional [id number] Information not available 05/16/2022 What is your occupation? [employer] [id number] Information not available 05/16/2022 What is your exercise level? Occasional [id number] Information not available 05/16/2022 Mental Status Question Answer Note LastModified by [employer] Details LastModified Time Do you feel stressed (tense, restless, nervous, or anxious, or unable to sleep at night)? [id number] Information not available 05/16/2022 Family History Relationship Description Onset Age of this Age Resolved Age Notes LastModified by Organization Details LastModified Time Father Myocardial infarction 56 [id number] Not available 05/16/2022 10:42:56 Father Hypertensive disorder [id number] Not available 05/16/2022 10:42:56 Father Hyperlipidem ia [id number] Not available 05/16/2022 10:42:56 Medical History No medical history recorded. Gynecological History Statement/Question Response Date of Last Pap Smear 04/18/2022 Current Control Method IUD Date of Last Colonoscopy Most Recent Mammogram Most Recent Bone Density Obstetrics History GPAL:G 2 P 0 0 0 0 Immunizations Vaccine Type Date Status Note Provider Nam e and Address Organization Details Recorded Time influenza, unspecified formulation 3 completed Elizabeth Hummel RN null, [facility] 02/01/2023 10:29:54 COVID-19 Non-[place] Vaccine, UNSPECIFIED 1 completed Elizabeth Hummel RN null, [facility] 02/01/2023 10:29:54 COVID-19 Non-US Vaccine, UNSPECIFIED 1 completed TRISH Miller, [facility] 02/01/2023 10:29:54 Tdap 6 completed TRISH Miller, [facility] 02/01/2023 10:29:54 Influenza, split virus, quadrivalent, preservative 1 completed TRISH Miller, [facility] 02/01/2023 10:29:54 Influenza, split virus, quadrivalent, PF 3 completed TRISH Miller, [facility] 02/01/2023 10:29:54 Past Encounters Encounter ID Performer Location Encounter Start Date Encounter Closed Date Diagnosis/Indication Diagnosis SNOMED-CT Code Diagnosis ICD10 Code Diagnosis IMO Codes Diagnosis Note [id number] Mike Winn MD [address] [address] 07/15/2020 00:00:00 07/15/2020 14:59:00 [id number] Mike Winn MD [address] [address] 01/06/2021 00:00:00 01/06/2021 10:53:55 [id number] Mike Winn MD [address] [address] 01/19/2022 00:00:00 01/19/2022 13:16:19 [id number] Mike Winn MD [address] [address] 1 02/16/2022 00:00:00 02/16/2022 10:18:25 [id number] Mike Winn MD [address] [address] 03/23/2022 00:00:00 03/23/2022 10:13:52 [id number] Mike Winn MD [address] [address] 04/20/2022 00:00:00 04/20/2022 10:26:11 [id number] Elizabeth Garcia NP [address] [address] 05/18/2022 09:59:10 05/18/2022 10:50:25 Overweight 123402874 E66.3 Phentermin e 37.5 mg po daily stopped. At goal of BMI < 25. Dyspnea 332475050 R06.00 secondary to covid. [id number] Elizabeth Garcia NP [address] [address] 02/01/2023 10:14:44 02/01/2023 11:22:45 Adult health examination 317615174 Z00.00 Encouraged well balanced meals, active lifestyle Anemia screening 4776440 07 Z13.0 Diabetes m ellitus screening 658241884 Z13.1 Thyroid di sorder screening 749993694 Z13.29 Hyperlipid emia screening 187861424 Z13.220 Anxiety 10231541 F41.9 lexapro 5 mg po daily. [id number] Mike Winn MD [address] [address] 05/22/2023 17:10:20 05/22/2023 17:53:35 Cough 23798335 R05.9 Nasal congestion 0470403 0 R09.81 Fever 896297791 R50.9 Bronchitis 47893063 J40 Anxiety disorder 06 F41.9 [id number] Mike Winn MD [address] [address] 07/04/2023 17:36:04 07/04/2023 17:54:30 Anxiety disorder F41.9 Overweight 558532400 E66 .3 [id number] Mike Winn MD [address] [address] 1 09/03/2023 17:16:53 09/03/2023 17:48:57 Adult health examination 521259007 Z00.00 Overweight 255409897 E66 .3 Screening for disorder 043561242 Z13.9 Anxiety disorder F41.9 History of cholecystectomy 286674290 Z90.49 [id number] Mike Winn MD [address] [address] 09/06/2023 08:54:51 09/06/2023 10:17:59 [id number] iMke Winn MD [address] [address] 10/03/2023 16:23:23 10/03/2023 16:43:35 Overweight 725576103 E66.3 Anxiety disorder 06 F41.9 Stable History of cholecystectomy 652180049 Z90.49 Liver enzy mes level above reference range 843695102 R74.8 Health Concerns Section Related Observation LastModified by Organization Detai ls LastModified Time None Recorded Concern Status LastModified by Organization Details LastModified Time None Recorded Advance Directives Directive N: Payers Insurance Date Sequence Insurance Name Policy Number Policy Verma Covered Member ID Verma Member ID Guarantor Name 07/31/2024 1 [place] [id number] Andressa Menezes [id number] Andressa Menezes 07/31/2024 1 [employer] [id number] Andressa Menezes [id number] Andressa Menezes Notes Date Note Type Note Provider Name and Address Organization Details Recorded Time 05/22/2023 text/html ACV: C/o congestion, cough, fatigue, chills since yesterday night. Pt has her kids at home sick, this is going on on/off for last 2 weeks. Pt has been doing otc meds, but still not getting any better. Pt stopped taking lexapro for her anxiety as she was getting drowsy on it. Denies any mood problem/SI/HI. Mike Winn MD [address], [place], [address], [employer] 05/22/2023 17:51:21 07/04/2023 text/html Pt is here for f/u on her meds and chronic conditions. Doing overall well. Denies any problem with meds. Pt wants to go back on Phentermine for her wt concern. No problem with it in the past. Doing much better with her anxiety. Denies any mood problem/SI/HI. Pt stopped taking lexapro for her anxiety as she was getting drowsy on it. Mike Winn MD [address], [place], [address], [facility] 07/04/2023 17:53:09 09/03/2023 text/html Pt is here for her annual exam and meds. Doing overall well. Denies any problem with meds. Happy with Phentermine use. So far, 6 lbs wt loss on it. Doing much better with her anxiety. Denies any mood swings/SI/HI. Pt stopped taking lexapro for her anxiety as she was getting drowsy on it. Mike Winn MD [address], [place], [address], [facility] 09/03/2023 17:44:48 10/03/2023 text/html Pt is here for f/u on her annual labs. Doing overall well. Denies any problem with meds. Happy with Phentermine use. So far, 10 lbs wt loss on it. Doing much better with her anxiety. Denies any mood swings/SI/HI. Pt stopped taking lexapro for her anxiety as she was getting drowsy on it. Mike Winn MD [address] [facility] [address], [place], [address], [facility] [employer] [facility] 10/03/2023 16:41:04 OBGyn Episode No OBEpisode recorded.
== END 2024-12-14 11:03 | disposition home or self-care (01) ==
PROVIDERS: Emergency Provider Nurse Practitioner Family
DX: S39.011A Strain of muscle, fascia and tendon of abdomen, initial encounter (principal); X58.XXXA Exposure to other specified factors, initial encounter
CPT/HCPCS: 99213; G0463